=== PATIENT | female | born 1960 | race Caucasian/White ===

== ENCOUNTER 2017-05-30 06:53 | Day surgery (SDC) | payer OTHER ==
[2017-05-30] MEDS: LIDOCAINE 1%/EPI 30 ML INJ INJ
[2017-05-30] MEDS: NEOMYC/POLYMYX/BACIT 30 GM OINT TOP
[2017-05-30] MEDS ORDERED: LIDOCAINE 1% (MPF) 30 ML INJ (07:41)
[2017-05-30] MEDS ORDERED: BUPIVACAINE 0.25% (MPF) 30 ML INJ (07:41)
[2017-05-30] MEDS ORDERED: PROPOFOL 20 ML (08:41)
[2017-05-30] MEDS ORDERED: LIDOCAINE 2% (SDV) 5 ML INJ (08:41)
[2017-05-30] MEDS ORDERED: MIDAZOLAM 1 MG/ML 2 ML INJ (08:57)
[2017-05-30] MEDS ORDERED: MEPERIDINE 25 MG INJ IV (09:00)
[2017-05-30] MEDS ORDERED: ONDANSETRON 4 MG INJ IV ×2 (09:00→10:30)
[2017-05-30] MEDS ORDERED: DIPHENHYDRAMINE 50 MG INJ IV (09:00)
[2017-05-30] MEDS ORDERED: HYDROmorphONE (0.2 MG/ML) 10ML SYG IV (09:00)
[2017-05-30] MEDS ORDERED: FENTAnyl 50 MCG/ML VIAL IV (09:00)
[2017-05-30] MEDS ORDERED: PROCHLORPERAZINE 10 MG INJ IV (09:00)
[2017-05-30] MEDS ORDERED: OXYCODONE/ACETAMINOPHEN (5/325) TAB PO ×3 (09:00→10:30)
[2017-05-30] MEDS ORDERED: FENTAnyl 50 MCG/ML VIAL (09:20)
[2017-05-30] MEDS ORDERED: CEFAZOLIN 1 GM INJ (09:21)
[2017-05-30] MEDS ORDERED: FAMOTIDINE 20 MG INJ (09:26)
[2017-05-30] MEDS ORDERED: ONDANSETRON 4 MG INJ (09:26)
[2017-05-30] MEDS ORDERED: DEXAMETHASONE 4 MG/ML 1 ML INJ (09:26)
[2017-05-30] MEDS ORDERED: EPHEDrine SULFATE 50 MG/5 ML SYG (09:27)
[2017-05-30] MEDS ORDERED: LIDOCAINE 1%/EPI 30 ML INJ (09:36)
[2017-05-30] MEDS ORDERED: NEOMYC/POLYMYX/BACIT 30 GM OINT (09:57)
[2017-05-30] MEDS ORDERED: morphine 2 MG INJ IV (10:30)
== END 2017-05-30 11:50 | disposition home or self-care (01) ==
LOC: SDS 06:53
DX: L72.11 Pilar cyst (principal); I10 Essential (primary) hypertension; E78.5 Hyperlipidemia, unspecified
CPT/HCPCS: 11426; 88307